=== PATIENT | female | born 1985 | race Caucasian/White ===

== ENCOUNTER 2021-04-13 09:56 | Emergency (ER) | payer OTHER ==
[~2021-04-13] VITALS: Ht 165.1 cm; Wt 99.8 kg
[2021-04-13] MEDS ORDERED: NAPROSYN500 MG PO (11:23)
[2021-04-13 12:15] VITALS: BP 136/101
== END 2021-04-13 13:06 | disposition home or self-care (01) ==
LOC: ER 09:56
DX: S00.93XA Contusion of unspecified part of head, initial encounter (principal); I10 Essential (primary) hypertension; F12.90 Cannabis use, unspecified, uncomplicated; W22.01XA Walked into wall, initial encounter; Y93.89 Activity, other specified; Y92.89 Other specified places as the place of occurrence of the external cause; Y99.8 Other external cause status